=== PATIENT | male | born 1955 | race Caucasian/White ===

== ENCOUNTER 2018-06-22 22:26 | Observation (INO) | payer OTHER ==
[2018-06-22] MEDS ORDERED: methylPREDNISolone Sod Succ/PF 125 MG/2 ML VIAL ONE (22:51)
[2018-06-22 22:55] LABS: #Basophils 0.1 thou/uL (0.0-0.2); #Eosinphils 0.4 thou/uL (0.0-0.7); #Monocytes 0.7 thou/uL (0.11-0.59); #Neutrophils 6.1 thou/uL (1.40-6.50); %Basophils 0.7 % (0.0-1.0); %Lymphocytes 21.5 % (21.0-51.0); %Monocytes 7.4 % (0.0-10.0); %Neutrophils 66.5 % (42.0-75.0); Hemoglobin 13.3 g/dL (14.0-18.0); Mean Corpuscular HGB CONC 34.5 g/dL (32.0-36.0); Mean Corpuscular Hemoglobin 32.8 pg (27.0-31.0); Mean Corpuscular Volume 95.1 fL (78.0-98.0); Mean Platelet Volume 5.3 fL (7.4-10.4); Platelet Count 280 thou/uL (130-400); RBC Distribution Width 11.4 % (11.5-14.5); Red Blood Cell (RBC) Count 4.07 mill/uL (4.70-6.10); White Blood Cell (WBC) Count 9.2 thou/uL (4.8-10.8)
[2018-06-22 23:10] LABS: ALT (SGPT) 22 U/L (8-55); AST (SGOT) 27 U/L (5-34); Albumin 4.3 g/dL (3.5-5.0); Alkaline Phosphatase 72 U/L (40-150); Anion Gap 16 mmol/L (10-20); BUN (Urea Nitrogen) 11 mg/dL (8.4-25.7); Bilirubin, Total 0.7 mg/dL (0.2-1.2); Calc. Creatinine Clearance 0 mL/min (70-130); Calcium 9.3 mg/dL (7.8-10.44); Carbon Dioxide 24 mmol/L (22-29); Chloride 103 mmol/L (98-107); Estimated GFR-MDRD 80; Globulin 2.5 g/dL (2.4-3.5); Glucose 111 mg/dL (70-105); Potassium 3.6 mmol/L (3.5-5.1); Protein, Total 6.8 g/dL (6.0-8.3); Sodium 139 mmol/L (136-145)
[2018-06-22 23:27] LABS: CKMB 2.2 ng/mL (0-6.6)
--- NOTE | 2018-06-22 23:33 | RAD ---
PA AND LATERAL CHEST X-RAY 06/22/18 HISTORY: Sore throat which started on Tuesday. Shortness of breath and cough. COMPARISON: None available. FINDINGS: The cardiac silhouette and pulmonary vasculature are within normal limits. There is a calcified granu hetal overlying the lateral left lung base. The lungs are otherwise clear. Degenerative changes noted in the spine. IMPRESSION: No acute cardiopulmonary process. POS: [facility]
[2018-06-22] MEDS ORDERED: Aspirin 325 MG TAB ONE (23:35)
[2018-06-23 01:14] VITALS: BMI 33.0
[2018-06-23] MEDS ORDERED: Acetaminophen 325 MG TAB PO PRN (02:21)
[2018-06-23] MEDS ORDERED: hydrALAZINE 20 MG/ML VIAL SLOW IVP PRN (02:21)
[2018-06-23] MEDS ORDERED: Bacteriostatic Water 30 ML VIAL FS PRN (02:33)
[2018-06-23 02:34] LABS: Lactic Acid 2.2 mmol/L (0.5-2.2)
[2018-06-23 02:37] LABS: Troponin I 0.055 ng/mL (< 0.028)
--- NOTE | 2018-06-23 05:35 | HP ---
PRIMARY CARE PHYSICIAN: Dr. Dave Talamantes in [place]. CHIEF COMPLAINT: Feeling short of breath. HISTORY OF PRESENT ILLNESS: Mr. Mullins is a pleasant 62-year-old gentleman, who has a history of asthma as well as hypertension. He has also had a previous PE and DVT. He says that on Tuesday, he started getting a sore throat and his head was feeling kind of stopped up and then he started having some shortness of breath. He also felt a bit achy and was having a cough, which is productive of some clear phlegm. He notes that on the day of admission, he got more and more short of breath and started getting tightness in his chest, like he was being squeezed. He said it was about 4/10, and he was feeling a little bit lightheaded as well and felt like his heart was racing. He denied having any fevers or chills. However, no nausea or vomiting. He says he has had a history of asthma before and this particular time, he did not feel like his usual asthma attack and for this reason, he came to the emergency room for evaluation. He was given a dose of IV Solu-Medrol and DuoNebs x3, and states that he is feeling much better since getting the DuoNeb and the steroids. REVIEW OF SYSTEMS: All systems were reviewed and are negative except for that mentioned in the history of present illness. PAST MEDICAL HISTORY: Significant for asthma, hypertension, history of pulmonary embolism, and DVT. PAST SURGICAL HISTORY: He has had an appendectomy as well as bilateral total knee replacements. He has had sinus surgery and inguinal hernia. ALLERGIES: NO KNOWN DRUG ALLERGIES. SOCIAL HISTORY: He is a former smoker, he quit 30 years ago. He smoked about two packs a day for 10 years. He occasionally drinks. He is and has 4 children. He currently works as a surgical scrub technologist. FAMILY HISTORY: Significant for anemia. CURRENT MEDICATIONS: Include, 1. Losartan 40 mg daily. 2. Nexium 40 mg a day. 3. Cialis p.r.n. 4. Symbicort 160/4.5 twice daily. 5. Ventolin inhaler q.4 hours as needed. PHYSICAL EXAMINATION: GENERAL: He is alert and oriented. He appears to be in no acute distress. He is well developed and well nourished. VITAL SIGNS: Blood pressure was 163/97, heart rate 80, respiratory rate of 17, temperature is 98.4, and O2 saturation 95% on room air. HEENT: His pupils are equal, round, and reactive. Extraocular muscles are intact. His sclerae are anicteric. Throat, no erythema, no exudates. Neck: No adenopathy. No bruits. LUNGS: They are essentially clear to auscultation with the exception of very faint wheeze at the very end of exhalation. There were no rales. CARDIOVASCULAR: He had a normal S1 and S2. I did not appreciate an S3 or S4. No murmurs, clicks, or rubs. ABDOMEN: Obese. It is soft. It is nontender and nondistended. Positive for bowel sounds. There is no rebound, no guarding, no organomegaly. EXTREMITIES: There is no edema. No calf tenderness. No warmth or erythema. NEUROLOGIC: His cranial nerves are intact. Muscle strength is 5/5 in both upper and lower extremities. ASSESSMENT: 1. The shortness of breath and chest tightness along with wheezing on exam is most likely related to an asthma exacerbation. His chest x-ray was clear, and his EKG showed just sinus rhythm with no changes and he had improved after being given the DuoNebs and Solu-Medrol. We will give him another dose of IV steroids and continue scheduled DuoNebs every 6 hours and re-evaluate him later on this morning. I suspect that if he continues to feel better, then he can be discharged home on a short course of steroids and antibiotics and DuoNebs. 2. With the chest pain, he does have a slightly elevated troponin and I do believe given his age is over 50 and he is a male, he should have some type of noninvasive workup for coronary artery disease. However, given that he is in the middle of an acute asthma exacerbation, the more prudent option in my opinion would be to allow him to get over the current exacerbation and have this done as an outpatient. 3. Hypertension. We will restart his usual home medications as well as p.r.n. medications as well. Job ID: [id number]
[2018-06-23 05:37] LABS: Troponin I 0.054 ng/mL (< 0.028)
[2018-06-23] MEDS ORDERED: Mometasone/Formoterol 120 PUFF INHALER INH SCH (06:30)
[2018-06-23] MEDS: methylPREDNISolone Sod Succ 40 MG VIAL IVP SCH (08:12)
[2018-06-23] MEDS: Azithromycin 250 MG TAB PO SCH (08:13)
[2018-06-23] MEDS: Losartan 25 MG TAB PO SCH (08:13)
[2018-06-23] MEDS: Enoxaparin Sodium 40 MG/0.4 ML SYRINGE SC SCH (08:14)
[2018-06-24] MEDS: Enoxaparin Sodium 40 MG/0.4 ML SYRINGE SC SCH (08:11)
[2018-06-24] MEDS: methylPREDNISolone Sod Succ 40 MG VIAL IVP SCH (08:12)
[2018-06-24] MEDS: Azithromycin 250 MG TAB PO SCH (08:12)
[2018-06-24] MEDS: Losartan 25 MG TAB PO SCH (08:12)
[2018-06-24] MEDS: Aspirin 325 MG TAB PO SCH (08:12)
--- NOTE | 2018-06-24 12:08 | CT ---
CT ANGIGORAM CHEST WITH 3D RENDERING: Date: 06/24/18 HISTORY: Tachycardia. History of PE in the past. Shortness of breath. FINDINGS: No CT evidence for acute pulmonary embolism. Three vessel coronary artery calcific disease. No pleura l effusion or pericardial effusion. Old granulomatous disease. No significant acute pulmonary parench ymal disease. There are degenerative changes of both shoulder joints with some intraosseous cystic ch anges within the glenoid regions bilaterally resulting in some intraosseous cystic change of the post erior left glenoid resulting in some bony expansion probably related to intraosseous degenerative or intraosseous cystic ganglia. Visualized abdomen is unremarkable. IMPRESSION: No CT evidence for acute pulmonary embolism. No evidence for aortic aneurysm or dissection. Three ves sherice coronary artery calcific disease. No evidence for other significant acute process in the chest. B ilateral glenoid subchondral cystic change with some minimal intraosseous cystic expansion of the pos terior left glenoid. 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 POS: [facility]
[2018-06-24] MEDS ORDERED: ISOVUE-370 76%-LOCM 1 ML ONE (12:54)
--- NOTE | 2018-06-24 14:25 | PRG ---
DATE OF SERVICE: 06/24/2018 SUBJECTIVE: The patient is seen and examined at the bedside. He is not having much complaints to offer. He started wheezing this morning, according to a respiratory therapist, but the patient did not even noticed that he has been wheezing. OBJECTIVE: VITAL SIGNS: Blood pressure is 167/107, pulse is 93, temperature is 97.9, respiratory rate is 20, and O2 saturation is 96%. HEENT: His head is atraumatic and normocephalic. Eyes are PERRLA. Sclerae are nonicteric. Oral mucosa is moist. NECK: Supple. LUNGS: Expiratory wheezes, mild. HEART: S1 and S2 normal. Irregular. No S3. No S4. ABDOMEN: Soft and nontender. EXTREMITIES: No clubbing, cyanosis, or edema. NEUROLOGIC: He is alert and oriented x4. There is no any motor or sensory deficits present. Cranial nerves are intact. LABORATORY DATA: None today. IMPRESSION: 1. Shortness of breath and chest tightness along with wheezing, felt to be related to asthma exacerbation, but the patient improved quickly and found to have sinus tachycardia with PACs on his monitoring, which was felt to be secondary to his albuterol treatments he received in the hospital. The patient underwent CT angiogram of the chest, which showed no pulmonary embolism, but calcified coronary arteries. We are awaiting for echocardiogram to be read by teacher visually impaired and most likely he will have to have stress test done. 2. Hypertension. We will make some adjustments to his medications. Likely steroid use is contributing factor to his elevated blood pressure. Job ID: [id number]
--- NOTE | 2018-06-24 15:50 | PRG ---
DATE OF SERVICE: 06/23/2018 SUBJECTIVE: The patient was seen and examined at the bedside. His family member was present during my visit. He does not have much complaints to offer. His shortness of breath is very improved. He does not wheeze. OBJECTIVE: VITAL SIGNS: Blood pressure is 136/93, pulse is 123, respiratory rate is 16, O2 saturation is 93% on room air, and temperature is 97.7. HEENT: Head is atraumatic and normocephalic. Eyes are PERRLA. Sclerae are nonicteric. Oral mucosa is moist. NECK: Supple. LUNGS: Clear. HEART: S1 and S2 normal. Tachycardic. No S3. No S4. No any murmur. ABDOMEN: Soft and nontender. Bowel sounds are present. No organomegaly. EXTREMITIES: No clubbing, cyanosis, or edema. NEUROLOGIC: He is alert and oriented x4. There is no any motor or sensory deficits present. Cranial nerves are intact. LABORATORY DATA: Lactic acid 2.2. Two sets of troponin I, 0.055 and 0.054. Shortness of breath with some chest tightness. Three sets of troponin are indeterminate. He is not wheezing anymore, but he is tachycardic. I presume that this is from albuterol treatment he is receiving during this hospitalization, so I am going to stop it and see whether he responds to this by going back to normal heart rate below 100. Hypertension. He was restarted on his home medications. PLAN: We are going to continue his observation. We are going to stop his nebulizers. Continue just steroids for his shortness of breath and possible asthma, and DVT prophylaxis with Lovenox and SCDs and will be able to go home the next day if his tachycardia resolves. Job ID: [id number]
[2018-06-24] MEDS ORDERED: Losartan 25 MG TAB PO SCH (16:15)
[2018-06-24] MEDS ORDERED: NIFEdipine XL 30 MG TAB PO SCH (18:00)
--- NOTE | 2018-06-24 18:05 | CON ---
DATE OF CONSULTATION: HISTORY OF PRESENT ILLNESS: The patient is a 62-year-old gentleman, who presented for evaluation of dyspnea and chest discomfort. The patient has a history of pulmonary embolus and a deep venous thrombosis. The patient also has asthma and uses chronic inhalers. The patient presented with dyspnea and also reported having chest discomfort. He states it seemed to be worse when he lied down or took a deep breath. The patient denies having any present chest discomfort. PAST MEDICAL HISTORY: 1. Asthma. 2. Hypertension. 3. Pulmonary embolism. 4. DVT. PAST SURGICAL HISTORY: Knee surgery, hernia surgery, appendectomy, and sinus surgery. ALLERGIES: NO KNOWN DRUG ALLERGIES. SOCIAL HISTORY: Nonsmoker. FAMILY HISTORY: Positive family history of coronary artery disease. MEDICATIONS ON ADMISSION: 1. Losartan 40 daily. 2. Nexium 40 daily. REVIEW OF SYSTEMS: Ten point system otherwise unremarkable. PHYSICAL EXAMINATION: GENERAL: This is an obese gentleman, in no acute distress. VITAL SIGNS: Blood pressure was 173/103. NECK: Showed no jugular venous distention. LUNGS: Clear to auscultation. HEART: Regular rate and rhythm. Normal S1 and S2. No murmurs. ABDOMEN: Nondistended. EXTREMITIES: Showed no edema. VASCULAR: Radial pulses 2+. LABORATORY DATA: Sodium was 139, potassium 3.6, chloride 103, bicarbonate 24, BUN 11, creatinine 0.96. His BNP was 49. Troponin was 0.055. White blood cell count is 9.2, hemoglobin 13.3, hematocrit 38.7, his platelets are 280. His D-dimer was 0.65. The echocardiogram revealed normal left ejection fraction 60% to 65%. with normal left systolic function. CT scan revealed no evidence of pulmonary embolus, with calcified coronary arteries. Chest x-ray revealed normal heart size with clear lung chan. EKG revealed normal sinus rhythm, normal ECG. IMPRESSION: 1. Asthma exacerbation. 2. Atypical chest pain. 3. Calcified coronary arteries. 4. History of pulmonary embolus. 5. Inappropriate sinus tachycardia. This gentleman presents with atypical chest pain and asthma exacerbation. His heart rate has remained elevated. He may have inappropriate tachycardia. The patient will be treated with Cardizem. The patient has normal left systolic function. There is no evidence of myocardial infarction. We would recommend since he has calcified coronary arteries to undergo a stress test during this hospitalization. PLAN: 1. Proceed with Cardiolite stress testing. 2. Add Cardizem after the procedure. 3. Add nifedipine to lower the patient's blood pressure. 4. Check the patient's lipid panel. Job ID: [id number] MTDD
[2018-06-25 06:01] LABS: Cardiac Risk 3.7 (Less than 4.5)
[2018-06-25] MEDS ORDERED: predniSONE 20 MG TAB PO SCH (08:00)
[2018-06-25 08:31] VITALS: TEMP 97.6
[2018-06-25] MEDS ORDERED: NIFEdipine XL 30 MG TAB PO SCH (09:00)
[2018-06-25] MEDS ORDERED: Losartan 25 MG TAB PO SCH (09:00)
--- NOTE | 2018-06-25 11:50 | NM ---
MYOCARDIAL PERFUSION SCAN: DATE: 06/25/18 INDICATION: Chest pain. TECHNIQUE: The patient was given 10 mCi of technetium sestamibi for rest imaging and 29 mCi for stress imaging. Patient was stressed with exercise according to Fabian protocol. The patient obtained 116% of maximal age-predicted heart rate. Left ventricle imaged with SPECT imaging and attenuation correction images obtained. FINDINGS: On nonattenuation images, there is loss of activity in the inferior wall, which is symmetric on both stress and rest images. This does correct with attenuation correction. No evidence of reversible isch emia. There appears to be normal wall motion. Ejection fraction recorded at 50%. IMPRESSION: No evidence for reversible ischemia. POS: DI
[2018-06-25] MEDS: Aspirin 325 MG TAB PO SCH (11:52)
[2018-06-25] MEDS: Enoxaparin Sodium 40 MG/0.4 ML SYRINGE SC SCH (11:53)
[2018-06-25] MEDS: Azithromycin 250 MG TAB PO SCH (11:53)
[2018-06-25 11:54] VITALS: BP 150/97
--- NOTE | 2018-06-25 13:14 | DIS ---
DATE OF ADMISSION: 06/22/2018 DATE OF DISCHARGE: 06/25/2018 FINAL DIAGNOSES: 1. Asthma exacerbation. 2. Atypical chest pain. 3. Calcified coronary arteries per CT. 4. History of pulmonary embolism. 5. Inappropriate sinus tachycardia. TEST ENGINEER: Dr. Toney Vicente, Cardiology Service. IMAGES: 1. Chest x-ray, no acute cardiopulmonary process. 2. CT angiogram of the chest, no evidence of acute pulmonary embolism, but three-vessel coronary artery calcification. 3. Echocardiogram, normal LVEF, normal left ventricle, normal left atrium, mild mitral regurgitation, and mild tricuspid regurgitation. 4. Nuclear medicine stress test showed no evidence for reversible ischemia. Ejection fraction was recorded at 50% and wall motion appeared to be within normal limits. HOSPITAL COURSE: The patient is a 62-year-old male with past medical history of asthma, hypertension, PE, and DVT, who presented to the emergency room with some complaints of sore throat and some shortness of breath. He felt lightheaded and felt that his heart was racing. He denied any fever or chills. No nausea or vomiting. He has a history of asthma, but usually asthma is well controlled without any significant medication use. In the emergency room, he was given IV Solu-Medrol and DuoNeb x3 and got admitted to the hospital for observation. At the time of admission, his blood pressure was 163/97, pulse was 80, respiratory rate was 17, temperature was 98.4, and O2 saturation was 95% on room air. He was observed in the hospital. He had some tachycardia during this hospitalization, which was unclear for etiology. He underwent CT angiogram to rule out PE, this test came back negative for PE, but it showed some calcification of the coronary arteries and so he was seen by dogger, Toney Vicente, who make some adjustment to his blood pressure medications. He is starting him on Cardizem and he underwent stress test with nuclear medicine, which came back negative. LVEF was recorded at 50%. The patient is doing well. He did not have any changes on electrocardiogram. His blood pressure is 150/97, pulse 98, temperature is 97.6, respiratory rate is 20, O2 saturation is 95% on room air. He was seen and examined before his discharge. ACTIVITIES: As tolerated after the discharge. DIET: Heart healthy with low salt. DISCHARGE MEDICATIONS: 1. Cardizem CD 240 mg once a day. 2. Prednisone 20 mg once a day for additional 4 days. 3. Nexium 20 mg once a day. 4. Losartan 50 mg once a day. 5. Albuterol sulfate HandiHaler q.4 hours p.r.n. 6. Symbicort 160/4.5 two puffs twice a day. FOLLOWUP: He will follow up with his primary care physician in 1 week. TIME SPENT: Time spent on this discharge is less than 30 minutes. Job ID: [id number]
== END 2018-06-25 13:20 | disposition home or self-care (01) ==
LOC: SCSER 22:26 → 2SW 23:40
PROVIDERS: ADMIT Internal Medicine; ATTEND Internal Medicine
DX: J45.901 Unspecified asthma with (acute) exacerbation (principal); R07.89 Other chest pain; I25.10 Atherosclerotic heart disease of native coronary artery without angina pectoris; I10 Essential (primary) hypertension; Z86.711 Personal history of pulmonary embolism; Z86.718 Personal history of other venous thrombosis and embolism; Z87.891 Personal history of nicotine dependence; Z96.653 Presence of artificial knee joint, bilateral; Z90.49 Acquired absence of other specified parts of digestive tract; Z79.52 Long term (current) use of systemic steroids; Z79.899 Other long term (current) drug therapy; Z98.890 Other specified postprocedural states
CPT/HCPCS: 36415; 71046; 71275; 78452; 80053; 80061; 82553; 83605; 83880; 84484; 85025; 85379; 87804; 93005; 93010; 93017; 93306; 94640; 96372; 96374; 96375; 96376; A9500; G0378; J0360; J1650; J2920; J2930; J7620; Q9966

== ENCOUNTER 2023-06-07 09:52 | Outpatient (CLI) | payer MEDICARE ==
[2023-06-07 11:34] LABS: #Basophils 0.1 10x3/uL (0.0-0.2); #Eosinphils 0.3 10x3/uL (0.0-0.5); #Monocytes 0.6 10x3/uL (0.0-1.1); %Basophils 0.7 % (0.0-2.0); %Eosinophils 4.6 % (0.0-6.0); %Lymphocytes 41.2 % (18.0-47.0); %Monocytes 8.3 % (0.0-10.0); %Neutrophils 44.9 % (40.0-75.0); Hematocrit 43.6 % (38.8-50.0); Hemoglobin 15.1 g/dL (13.5-17.5); Mean Corpuscular HGB CONC 34.6 g/dL (32.0-36.0); Mean Corpuscular Hemoglobin 31.1 pg (27.0-33.0); Mean Corpuscular Volume 89.9 fl (81.2-95.1); Mean Platelet Volume 9.4 fl (7.4-10.4); Platelet Count 326 10x3/uL (150-450); RBC Distribution Width 12.5 % (11.5-14.5); Red Blood Cell (RBC) Count 4.85 10x6/uL (4.32-5.72); White Blood Cell (WBC) Count 6.7 10x3/uL (3.5-10.5)
== END 2023-06-07 09:53 | disposition home or self-care (01) ==
LOC: LABBT 09:52
PROVIDERS: ATTEND Orthopaedic Surgery Hand Surgery
DX: Z01.818 Encounter for other preprocedural examination (principal); M19.042 Primary osteoarthritis, left hand; M18.12 Unilateral primary osteoarthritis of first carpometacarpal joint, left hand; M77.9 Enthesopathy, unspecified
CPT/HCPCS: 85025; 93005; 93010

== ENCOUNTER 2023-06-10 06:19 | Day surgery (SDC) | payer MEDICARE ==
[2023-06-10] MEDS ORDERED: Bacitracin Zinc Ointment 30 gm TUBE ONE (07:14)
[2023-06-10] MEDS ORDERED: Bupivacaine 0.25% HCL 30 ML VIAL ONE ×2 (07:14→10:10)
[2023-06-10] MEDS ORDERED: Sodium Chloride 0.9% 100 ML ONE ×2 (07:33→07:38)
[2023-06-10] MEDS ORDERED: CEFAZOLIN 2 GM VIAL ONE (07:33)
[2023-06-10] MEDS ORDERED: fentaNYL PF 100 MCG/2 ML SYRINGE ONE (07:34)
[2023-06-10] MEDS ORDERED: PROPOFOL 20 ML ONE (07:34)
[2023-06-10] MEDS ORDERED: Dexamethasone 20 MG/5 ML VIAL ONE (07:36)
[2023-06-10] MEDS ORDERED: Ondansetron PF 4 MG/2 ML Vial ONE (07:36)
[2023-06-10] MEDS ORDERED: Lidocaine 1% PF 5 ML VIAL ONE (07:36)
[2023-06-10] MEDS ORDERED: Rocuronium Bromide 10 MG/ML (10ML VIAL) ONE (07:36)
[2023-06-10] MEDS ORDERED: Phenylephrine 10 MG/ML VIAL ONE (07:38)
[2023-06-10] MEDS ORDERED: SUCCINYLCHOLINE/SOD CL,ISO/PF 200 MG/10 ML SYRINGE FS ONE (07:38)
[2023-06-10] MEDS ORDERED: ePHEDrine Sulfate 50 MG/10 ML VIAL ONE (08:03)
[2023-06-10] MEDS ORDERED: fentaNYL 50 mcg/mL 1 mL Vial ONE ×2 (10:09→12:50)
[2023-06-10] MEDS ORDERED: Ketorolac Tromethamine 30 MG (1 mL) VIAL ONE (12:57)
== END 2023-06-10 15:10 | disposition home or self-care (01) ==
LOC: SDC 06:19
PROVIDERS: ATTEND Orthopaedic Surgery Hand Surgery
PROC: 0RRX0JZ Replacement of Left Finger Phalangeal Joint with Synthetic Substitute, Open Approach (ICD-10-PCS; principal; 2023-06-10)
PROC: 0RRT0JZ Replacement of Left Carpometacarpal Joint with Synthetic Substitute, Open Approach (ICD-10-PCS; 2023-06-10)
PROC: 0RGV04Z Fusion of Left Metacarpophalangeal Joint with Internal Fixation Device, Open Approach (ICD-10-PCS; 2023-06-10)
DX: M18.12 Unilateral primary osteoarthritis of first carpometacarpal joint, left hand (principal); M19.042 Primary osteoarthritis, left hand; I10 Essential (primary) hypertension; J45.909 Unspecified asthma, uncomplicated; Z79.899 Other long term (current) drug therapy; Z86.718 Personal history of other venous thrombosis and embolism; Z79.52 Long term (current) use of systemic steroids
CPT/HCPCS: 25310; 25447; 26516; 26536; 73140; C1776; C1894; J3010; J0665; J1100; J1885; J2371; J2405; J2704; J3490